=== PATIENT | female | born 1960 | race Caucasian/White ===

== ENCOUNTER 2018-01-21 17:02 | Emergency (ER) | payer OTHER ==
[~2018-01-21] VITALS: Ht 165.1 cm; Wt 87.1 kg
[2018-01-21 17:10] VITALS: BP_SYST 135
--- NOTE | 2018-01-21 17:14 | NUR ---
Patient triaged and placed in waiting room. VSS and patient appears in no acute distress at this time. Accompanied by daughter, awaiting available bed, and MD notified of need for MSE.
--- NOTE | 2018-01-21 17:52 | NUR ---
Pt placed in bed 8
--- NOTE | 2018-01-21 18:02 | NUR ---
ER at bedside examining patient.
--- NOTE | 2018-01-21 18:02 | NUR ---
Pt complains of pelvic pain since this morning, states was leaning over and picking up something, felt "a pop in her vagina, then a gush of blood." Pt states has not had a period in 16 years. Pt denies n/v or fever. Denies trauma. No other injuries/complaints per pt or noted.
[2018-01-21 18:27] LABS: BILIRUBIN,URINE NEGATIVE (NEGATIVE); CLARITY/URINE CLEAR (CLEAR); COLOR,URINE YELLOW (YELLOW); GLUCOSE,URINE NEGATIVE (NEGATIVE); KETONES,URINE NEGATIVE (NEGATIVE); LEUKOCYTE ESTERASE ,URINE 1+ (NEGATIVE); NITRITE, URINE NEGATIVE (NEGATIVE); PH,URINE 6.5 (5.0-8.0); PROTEIN URINE NEGATIVE (NEGATIVE); UROBILINOGEN,URINE 0.2 (0.2-1.0)
[2018-01-21 18:28] LABS: BLOOD, URINE TRACE (NEGATIVE)
[2018-01-21 18:34] LABS: BACTERIA,URINE FEW /HPF (None Seen); RBC,URINE 0-3 /HPF (0-3); WBC,URINE 20-50 /HPF (0-3)
[2018-01-21 18:46] LABS: BASOPHILS # (AUTO) 0.1 K/uL (0.0-0.2); BASOPHILS % (AUTO) 1.2 % (0.0-2.0); EOSINOPHILS # (AUTO) 0.1 K/uL (0.0-0.4); EOSINOPHILS % (AUTO) 1.5 % (0.0-4.0); HEMATOCRIT 42.5 % (36-48); HEMOGLOBIN 13.5 g/dL (12.0-16.0); LYMPHOCYTES # (AUTO) 2.5 K/uL (1.0-5.5); LYMPHOCYTES % (AUTO) 27.4 % (20.5-51.5); MEAN CORPUSCULAR HEMOGLOBIN 29 pg (27-31); MEAN CORPUSCULAR HGB CONC 32 % (32-36); MEAN CORPUSCULAR VOLUME 90 fL (79.0-98.0); MONOCYTES # (AUTO) 0.4 K/uL (0.0-1.0); MONOCYTES % (AUTO) 4.6 % (1.7-9.3); NEUTROPHILS # (AUTO) 6.1 K/uL (1.8-7.7); NEUTROPHILS % (AUTO) 65.3 % (40.0-70.0); PLATELET COUNT (AUTO) 399 K/uL (130-430); RED BLOOD CELL COUNT(AUTO) 4.72 MIL/uL (4.2-6.2); RED CELL DISTRIBUTION WIDTH 12.3 % (9.0-15.0); WHITE BLOOD COUNT (AUTO) 9.2 K/uL (4.8-10.8)
--- NOTE | 2018-01-21 19:17 | NUR ---
Ultrasound at bedside.
--- NOTE | 2018-01-21 20:00 | NUR ---
Patient given written and verbal discharge instructions and verbalizes understanding. ER MD discussed with patient the results and treatment provided. Patient in stable condition. ID arm band removed. IV catheter removed intact and dressing applied, no active bleeding. Rx of Macrobid given. Patient educated on pain management and to follow up with PMD. Pain Scale 0. Opportunity for questions provided and answered. Medication side effect fact sheet provided.
[2018-01-21 20:06] VITALS: BP_SYST 127
== END 2018-01-21 20:06 | disposition home or self-care (01) ==
LOC: SED 17:02
DX: N83.8 Other noninflammatory disorders of ovary, fallopian tube and broad ligament (principal); N39.0 Urinary tract infection, site not specified; R03.0 Elevated blood-pressure reading, without diagnosis of hypertension
CPT/HCPCS: 36415; 76830-TC; 76857; 81000-TC; 85025; 87086; 99285

== ENCOUNTER 2020-07-22 14:03 | Emergency (ER) | payer OTHER ==
[~2020-07-22] VITALS: Ht 162.6 cm; Wt 88.9 kg
[2020-07-22 15:00] VITALS: BP_SYST 147
[2020-07-22] MEDS ORDERED: OXYCODONE/ACETAMINOPHEN 5-325 TABLET PO ONE (15:00)
[2020-07-22] MEDS ORDERED: IBUP-1969 PO (16:20)
[2020-07-22] MEDS ORDERED: HYDR-3919 PO (16:20)
[2020-07-22 16:44] VITALS: BP_SYST 147
== END 2020-07-22 16:45 | disposition home or self-care (01) ==
LOC: SED 14:03
DX: S42.121A Displaced fracture of acromial process, right shoulder, initial encounter for closed fracture (principal); I10 Essential (primary) hypertension; E11.9 Type 2 diabetes mellitus without complications; W01.198A Fall on same level from slipping, tripping and stumbling with subsequent striking against other object, initial encounter; Y93.89 Activity, other specified; Y92.89 Other specified places as the place of occurrence of the external cause; Y99.8 Other external cause status
CPT/HCPCS: 71045; 73030; 99283

== ENCOUNTER 2021-07-21 17:21 | Emergency (ER) | payer OTHER ==
[~2021-07-21] VITALS: Ht 154.9 cm; Wt 75.3 kg
[~2021-07-21 17:21] MED LIST: HYDR-3919 PO; IBUP-1969 PO
[2021-07-21 17:41] VITALS: BP_SYST 131
--- NOTE | 2021-07-21 17:44 | NUR ---
DR BLANDON AT BEDSIDE EXAMINING PT, ACCOMPANIED BY HER DAUGHTER FOR TRANSLATION.
[2021-07-21] MEDS ORDERED: HYDROcodone/ACETAMIN 10-325 MG TAB PO ONE (17:45)
[2021-07-21] MEDS ORDERED: KETOROLAC TROMETHAMINE 60 MG/2 ML VIAL IM ONE (17:45)
--- NOTE | 2021-07-21 18:15 | NUR ---
MEDICATED PT WITH TORADOL 60 MG IM AND NORCO 10/325 MG TABLET FOR LEFT SIDE LEG PAIN.
--- NOTE | 2021-07-21 19:25 | NUR ---
REPORT RECEIVED, PT WITH EYES CLOSED, IN NAD. RESP EVEN AND UNLABORED, ON RA@ 96%. FAMILY AT BEDSIDE, AWAITING FURTHER XRAYS. SAFETY MEASURES IN PLACE, WILL CONT TO MONITOR.
[2021-07-21] MEDS ORDERED: IBUP-1969 PO ×2 (20:07→21:00)
[2021-07-21] MEDS ORDERED: HYDR-3917 PO ×2 (20:07→21:00)
--- NOTE | 2021-07-21 20:39 | NUR ---
Patient given written and verbal discharge instructions and verbalizes understanding. ER MD discussed with patient the results and treatment provided. Patient in stable condition. ID arm band removed. Rx of NORCO, IBUPROFEN given. Patient educated on pain management and to follow up with PMD. Pain Scale . Opportunity for questions provided and answered. Medication side effect fact sheet provided.
[2021-07-21 20:42] VITALS: BP_SYST 150
== END 2021-07-21 20:39 | disposition home or self-care (01) ==
LOC: SED 17:21
DX: S73.102A Unspecified sprain of left hip, initial encounter (principal); S83.92XA Sprain of unspecified site of left knee, initial encounter; I10 Essential (primary) hypertension; E11.9 Type 2 diabetes mellitus without complications; Z79.899 Other long term (current) drug therapy; W01.0XXA Fall on same level from slipping, tripping and stumbling without subsequent striking against object, initial encounter; Y93.89 Activity, other specified; Y92.89 Other specified places as the place of occurrence of the external cause; Y99.8 Other external cause status
CPT/HCPCS: 72192; 73502; 73564; 73700; 76376; 96372; 99284; J1885

== ENCOUNTER 2024-01-14 20:16 | Emergency (ER) | payer OTHER ==
[~2024-01-14] VITALS: Ht 162.6 cm; Wt 88.9 kg
[~2024-01-14 20:16] MED LIST changes: +HYDR-3917 PO; -HYDR-3919 PO
[2024-01-14 20:47] VITALS: BP_SYST 139; PULSE 102; RESP 20; TEMP 98; O2SAT 98
[2024-01-14 21:47] LABS: BILIRUBIN,URINE NEGATIVE (NEGATIVE); BLOOD, URINE 1+ (NEGATIVE); COLOR,URINE YELLOW (YELLOW); GLUCOSE,URINE 3+ (NEGATIVE); KETONES,URINE NEGATIVE (NEGATIVE); LEUKOCYTE ESTERASE ,URINE NEGATIVE (NEGATIVE); NITRITE, URINE NEGATIVE (NEGATIVE); PROTEIN URINE NEGATIVE (NEGATIVE); UROBILINOGEN,URINE 0.2 (0.2-1.0)
[2024-01-14 21:47] LABS: ALBUMIN 3.7 g/dL (3.4-4.8); BILIRUBIN,DIRECT 0.1 mg/dL (0.0-0.3); CALCIUM 9.6 mg/dL (8.4-11.0); CREATININE 0.89 mg/dL (0.55-1.30); POTASSIUM 4.5 mmol/L (3.5-5.1); THYROID STIMULATING HORMONE 0.79 uIu/mL (0.36-3.74); TOTAL BILIRUBIN 0.5 mg/dL (0.0-1.0); TOTAL PROTEIN, SERUM 8.2 g/dL (6.4-8.3)
[2024-01-14 21:53] LABS: BASOPHILS % (AUTO) 0.2 % (0.0-2.0); EOSINOPHILS # (AUTO) 0.1 K/uL (0.0-0.4); EOSINOPHILS % (AUTO) 0.8 % (0.0-4.0); HEMATOCRIT 42.1 % (36-48); LYMPHOCYTES # (AUTO) 2.1 K/uL (1.0-5.5); LYMPHOCYTES % (AUTO) 17.1 % (20.5-51.5); MEAN CORPUSCULAR HEMOGLOBIN 29 pg (27-31); MEAN CORPUSCULAR HGB CONC 33 % (32-36); MEAN CORPUSCULAR VOLUME 88 fL (79.0-98.0); MONOCYTES # (AUTO) 0.7 K/uL (0.0-1.0); NEUTROPHILS # (AUTO) 9.5 K/uL (1.8-7.7); NEUTROPHILS % (AUTO) 75.9 % (40.0-70.0); PLATELET COUNT (AUTO) 354 K/uL (130-430); RED BLOOD CELL COUNT(AUTO) 4.81 MIL/uL (4.2-6.2); RED CELL DISTRIBUTION WIDTH 14.3 % (9.0-15.0); WHITE BLOOD COUNT (AUTO) 12.5 K/uL (4.8-10.8)
[2024-01-14] MEDS ORDERED: INSULIN REGULAR, HUMAN 10 UNITS/0.1 ML, 3 ML VIAL ONE (22:31)
[2024-01-14] MEDS: INSULIN REGULAR, HUMAN 100 UNITS/ML, 3 ML VIAL IVP ONE (22:33)
[2024-01-14] MEDS: NACL 0.9% 1,000 ML IV ONE (22:33)
[2024-01-14 22:43] LABS: CLARITY/URINE SLIGHTLY HAZY (CLEAR)
[2024-01-14 22:45] LABS: BACTERIA,URINE MODERATE /HPF (None Seen); MUCUS,URINE None Seen /LPF (None Seen); WBC,URINE 20-50 /HPF (0-3); YEAST,URINE Few /HPF (None Seen)
[2024-01-15] MEDS: cefTRIAXone 1 GM IVPB PREMIX 50 ML IV ONE (01:53)
[2024-01-15] MEDS ORDERED: CIPR500T5 PO (02:27)
[2024-01-15 02:32] VITALS: BP_SYST 159; PULSE 92; RESP 18; TEMP 97.5; O2SAT 95
== END 2024-01-15 02:32 | disposition home or self-care (01) ==
LOC: SED 20:16
DX: N39.0 Urinary tract infection, site not specified (principal); E11.65 Type 2 diabetes mellitus with hyperglycemia; I10 Essential (primary) hypertension
CPT/HCPCS: 99284; 96361; 96375; 80076; 80048; 81000; 81001; 84443; 85025; 87040; 87086; 36415; 82948; 96365; 81015; J7030; J0696; 87186; J1815